=== PATIENT | female | born 1945 | race Caucasian/White ===

== ENCOUNTER 2024-01-19 11:37 | Emergency (ER) | payer MEDICARE, OTHER, SELFPAY ==
[2024-01-19 11:39] VITALS: BP 148/68
--- NOTE | 2024-01-19 12:39 | ED.GENMED ---
History of Present Illness
General
Chief Complaint: Rectal Bleeding
Source: patient
Exam Limitations: none
Time Seen by Provider: 01/19/24 12:14
Nursing documentation reviewed up to this point in time: agreed with
History of Present Illness
History of Present Illness:
78 yo female with no significant pmhx, hx hemorrhoids 'from having my kids,' but never bled, presents for rectal bleeding. States she noted 'some blood' mixed with stool 5 days ago and blood on toilet paper. Denies bloody toilet water. Noted blood
on toilet paper after BM's since. Went to 2 days ago and had blood work, anoscope exam and told hemorrhoids and given Cortisone 2.5% cream to apply after BM's which she has been doing. Denies perianal pain or pain with BMs. She does not have
copy of blood work from . She denies abd pain, lightheadedness. Denies constipation or diarrhea. Feels well otherwise.
Past History
Past History
ED Past Medical History: Other (Meningioma, followed by [facility])
ED Past Surgical History: None
Social History
Tobacco: Non-smoker
Alcohol: Occasional
Personal: Single
Living: alone
Review of Systems
Review of Systems
Allergies reviewed?: Yes
All Other Systems: ROS reviewed and negative except as documented in HPI and ROS
Constitutional: Denies fever or fatigue
Respiratory: Denies trouble breathing
Cardiac: Denies chest pain
ABD/GI: Reports bloody stools and other (hemorrhoids); Denies abdominal pain, nausea, diarrhea, constipated or anorexia
: Denies dysuria, frequency, difficulty voiding or urgency
Musculoskeletal: Reports no symptoms
Skin: Reports no symptoms
Neurological: Reports no symptoms
Phy Exam
Physical Exam
Physical Exam:
GENERAL: No acute distress. A&Ox3.
CONSTITUTIONAL: Afebrile.
EYES: clearL, conjunctivae normal
ENMT: pink, moist mucus membranes, Pharynx nl
RESPIRATORY: Regular respirations, nonlabored, lungs clear.
CARDIOVASCULAR: Regular rate and rhythm, no murmurs, no rubs.
GI: Soft, nontender, normal BS
Rectal: Digital internal: No stool, non tender, no palpable masses. External skin colored tags consistent with previous hemorrhoids. One of the surface areas of one of the tags appears abraded and raw but no current active bleeding.
Mild pink lubricant gel hematests positive.
MUSCULOSKELETAL: Moves with ease. Well perfused.
SKIN: Warm, dry, normal
PSYCH: Normal mood and affect. Well kept, interactive and appropriate
NEUROLOGIC: Awake, alert and oriented. No focal neurological deficits
Course
Orders/Labs/Results
Orders:
Orders
01/19/24 12:59
Complete Blood Count/With Diff Urgent
Comprehensive Metabolic Panel Urgent
Abnormal Lab Results
01/19/24
12:59
RBC 3.98 L 10^6/uL
(4.20-5.40)
MCH 32.4 H pg
(27.0-31.0)
Abs Immat Gran (auto) 0.5 H 10^3/uL
(0-0.05)
Absolute Lymphs (auto) 1.0 L 10^3/uL
(1.2-3.4)
Immature Gran % 8.7 H %
(0-0.5)
Lymphocytes % 16.4 L %
(20.5-51.1)
Monocytes % 9.7 H %
(1.7-9.3)
BUN 5 L mg/dl
(7-17)
Glucose 102 H mg/dl
(70-99)
Total Protein 6.2 L g/dl
(6.3-8.2)
01/19/24 12:59
01/19/24 12:59
Vital Signs
Initial and Last Documented VS:
Initial Vital Signs
Temp Pulse Resp BP Pulse Ox
98.1 F 84 18 148/68 98
01/19/24 11:39 01/19/24 11:39 01/19/24 11:39 01/19/24 11:39 01/19/24 11:39
Last Documented Vital Signs
Temp Pulse Resp BP Pulse Ox
98.1 F 84 18 148/68 98
01/19/24 11:39 01/19/24 11:39 01/19/24 11:39 01/19/24 11:39 01/19/24 11:39
MDM/Problems Addressed
Differential Diagnosis Includes:
Internal/external hemorrhoids, fissure, bleeding diverticulum
MDM/Problems Addressed:
78 yo female with no significant pmhx, hx hemorrhoids 'from having my kids,' but never bled, presents for rectal bleeding. States she noted 'some blood' mixed with stool 5 days ago and blood on toilet paper. Denies bloody toilet water. Noted blood
on toilet paper after BM's since. Went to 2 days ago and had blood work, anoscope exam and told hemorrhoids and given Cortisone 2.5% cream to apply after BM's which she has been doing. Denies perianal pain or pain with BMs. She does not have
copy of blood work from . She denies abd pain, lightheadedness. Denies constipation or diarrhea. Feels well otherwise.
Afebrile
1:30 PM:
CBC with no clinically significant abnormality
CMP normal
Pt reassured, referred to colo rectal as needed.
Patient requesting to leave as she has an Uber ride waiting for her
*Critical Care Note
Total Time (30-74mins, 75-104mins- exclusive of procedures): Not Applicable
ED Attending Note
-
Portions of this chart may have been created with voice recognition software.� Occasional wrong word or��sound alike� substitutions may have occurred due to the inherent limitations of voice recognition software.
Discharge Plan
Departure
Patient Disposition: Home (Routine Discharge)
Date of Disposition: 01/19/24
Time of Disposition: 13:32
Patient with high blood pressure during this ER visit?: No
Condition: Good
Discharge Problem:
Bleeding hemorrhoid, External hemorrhoid, bleeding
Instructions: Hemorrhoids (DC)
Prescriptions:
New
hydrocortisone acetate [Anusol-HC] 25 mg suppository
25 mg UT DAILY PRN (Reason: hemorrhoids) Qty: 12 0RF
Referrals:
Alexis Paulino MD [Active] - As needed
Lorena Beaulieu, DO [Family Provider] -
Activity Restrictions/Additional Instructions:
As we discussed, you have a mildly irritated abrasion on one of your hemorrhoids skin tags. This is most likely the site of bleeding.
Your blood work shows no sign of significant or worrisome bleeding.
I sent a prescription to your pharmacy for Anusol HC which is a rectal suppository with a steroid to help with the inflammation. Stop the cortisone cream if you are going to use a suppository
I gave you the name of a colorectal surgeon if you have further problems with bleeding hemorrhoids
Interventions
Interventions:
*Risk Screen - Suicide Last Done: 01/19/24 11:39
*General Assessment Last Done: 01/19/24 11:39
*Neglect/Abuse Screening Last Done: 01/19/24 11:39
*ED COVID-19 Vaccine History Last Done: 01/19/24 13:37
*Nursing Disposition Last Done: 01/19/24 13:38
FC-Cdccwf-[id number] Assessment Last Done: 01/19/24 13:37
ED- Cardiac Assessment Last Done: 01/19/24 13:37
ED- Pulmonary Assessment Last Done: 01/19/24 13:37
Discharge Date and Time
Discharge Date/Time: 01/19/24 13:39
Print Language: [facility]
[2024-01-19 13:21] LABS: % Basophils 1.7 % (0-2); % Eosinophils 2.9 % (0-6); % Immature Granulocytes 8.7 % (0-0.5); % Lymphocytes 16.4 % (20.5-51.1); % Monocytes 9.7 % (1.7-9.3); % Neutrophils 60.6 % (42.2-75.2); Absolute Basophils 0.1 10^3/uL (0-0.2); Absolute Eosinophils 0.2 10^3/uL (0-0.7); Absolute Immature Granulocytes 0.5 10^3/uL (0-0.05); Absolute Monocytes 0.6 10^3/uL (0.1-0.6); Absolute Neutrophils 3.6 10^3/uL (1.4-6.5); Hematocrit 37.1 % (37.0-47.0); Hemoglobin 12.9 g/dL (12.0-16.0); Mean Corp Hgb Conc. 34.8 g/dL (33.0-37.0); Mean Corpuscular Hgb 32.4 pg (27.0-31.0); Mean Corpuscular Volume 93.2 fL (81.0-99.0); Mean Platelet Volume 9.4 fL (7.4-10.4); Nucleated Red Blood Cells % 0 %; Platelet Count 348 10^3/uL (130-400); Red Blood Cell Count 3.98 10^6/uL (4.20-5.40); Red Cell Dist. Width 13.2 % (11.5-14.5)
[2024-01-19 13:28] LABS: ALT (SGPT) 19 U/L (0-35); AST (SGOT) 22 U/L (14-36); Albumin 3.9 g/dl (3.5-5.0); Alkaline Phosphatase 93 U/L (38-126); Blood Urea Nitrogen 5 mg/dl (7-17); Calcium 9.6 mg/dl (8.4-10.2); Carbon Dioxide 26 mmol/L (22-30); Chloride 103 mmol/L (98-107); Glucose 102 mg/dl (70-99); Potassium 4.4 mmol/L (3.5-5.1); Sodium 139 mmol/L (135-145); Total Bilirubin 0.2 mg/dl (0.2-1.3); Total Protein 6.2 g/dl (6.3-8.2); eGFR > 60.00
== END 2024-01-19 13:39 | disposition home or self-care (01) ==
LOC: EMR 11:37
PROVIDERS: Registered Nurse; EMERGENCY PHYSICIAN Emergency Medicine; FAMILY PHYSICIAN Family Medicine
DX: K64.4 Residual hemorrhoidal skin tags (principal)
CPT/HCPCS: 99283; 80053; 85025